=== PATIENT | female | born 1975 | race Caucasian/White ===

== ENCOUNTER 2018-05-26 09:32 | Emergency (ER) | payer MEDICAID ==
[~2018-05-26] VITALS: Ht 170.2 cm; Wt 95.0 kg
[~2018-05-26 09:32] MED LIST: CHOL100010 PO; CYAN100061 IM; ESOM20CA PO; FLUO10CA66 PO; FURO40TA4 PO; HYDR1TAB PO; NORCO10T PO; [UNRECOGNIZED DRUG - OTHER]
[2018-05-26] MEDS ORDERED: dexamethasone sod phosphate 10mg/ml inj IM STA (10:37)
[2018-05-26] MEDS ORDERED: diphenhydrAMINE 50 mg/ml inj IM ONE (10:40)
[2018-05-26] MEDS ORDERED: proCHLORperazine 10 MG/2 ml inj IM ONE (10:40)
[2018-05-26 11:27] VITALS: BP 120/59
== END 2018-05-26 11:30 | disposition home or self-care (01) ==
LOC: ER 09:33
DX: G43.909 Migraine, unspecified, not intractable, without status migrainosus (principal); D64.9 Anemia, unspecified; Z86.14 Personal history of Methicillin resistant Staphylococcus aureus infection; Z90.49 Acquired absence of other specified parts of digestive tract; Z90.710 Acquired absence of both cervix and uterus; Z98.84 Bariatric surgery status; Z88.8 Allergy status to other drugs, medicaments and biological substances; Z79.899 Other long term (current) drug therapy
CPT/HCPCS: 96372; 99284; J0780; J1100; J1200